=== PATIENT | male | born 1990 | race Caucasian/White ===

== ENCOUNTER 2019-09-23 10:02 | Emergency (ER) | payer OTHER ==
[~2019-09-23] VITALS: Ht 170 cm; Wt 68.2 kg
--- NOTE | 2019-09-23 11:08 | Diagnostic Imaging Report ---
INDICATION: Pain and swelling to the great toe. TIME OF EXAM: 10:21 AM FINDINGS: Three views right foot were obtained. There is a comminuted fracture of the proximal phalanx of the great toe. Fracture line appears to extend to the articular surface of the interphalangeal joint. No displacement or angulation is seen. Remaining phalanges as well as metatarsals are intact. Midfoot and hindfoot are unremarkable. IMPRESSION: Comminuted proximal phalangeal fracture of the great toe with intra-articular extension to the interphalangeal joint. Dictated by: Dictated on workstation # [id number]
--- NOTE | 2019-09-23 11:09 | Diagnostic Imaging Report ---
INDICATION: Injury to the right great toe. Time of exam 10:22 AM 3 views of the right great toe were obtained. There is comminuted fracture of the proximal phalanx of the great toe. Fracture lines do extend to the articular surface of the interphalangeal joint. There is no displacement or angulation. No radiopaque soft tissue foreign bodies are seen. No other fractures are identified. IMPRESSION: Comminuted proximal phalangeal fracture, as described. Dictated by: Dictated on workstation # [id number]
--- NOTE | 2019-09-23 11:10 | NUR ---
Wali tape applied to R great and second toe.
[2019-09-23] MEDS ORDERED: IBUP-1780 PO (11:19)
--- NOTE | 2019-09-23 11:20 | ED Lower Extremity ---
General Chief Complaint: Lower Extremity Stated Complaint: RT TOE INJ Nursing Triage Note: Hurt R foot two days ago and is having R great toe pain Nursing Sepsis Screen: No Definite Risk History of Present Illness Date Seen by Provider: Sep 23, 2019 Time Seen by Provider: 10:14 Initial Comments The patient is a 29-year-old male who is otherwise healthy. He presents with concern for right great toe pain with onset 2 days ago after he jumped off the top bunk of his bed at the residential and "landed wrong" on his toe. No other injury during the episode. Has been taking ibuprofen and Tylenol since the injury without relief of symptoms. Allergies and Home Medications Allergies Coded Allergies: No Known Drug Allergies (Unverified , 09/23/19) Patient Home Medication List Home Medication List Reviewed: Yes Review of Systems Constitutional: see HPI All Other Systems Reviewed Negative Unless Noted: Yes (Negative excepted noted.) Past Qxyldlj-Qfsrgv-Qfoozb Hx Past Med/Social Hx: Reviewed Nursing Past Med/Soc Hx Patient Social History Alcohol Use: Denies Use Recreational Drug Use: No Smoking Status: Former Smoker Former Smoker, Quit: March 07, 2019 2nd Hand Smoke Exposure: No Recent Foreign Travel: No Contact w/Someone Who Travel: No Recent Infectious Disease Expo: No Recent Hopitalizations: No Physical Abuse: No Sexual Abuse: No Mistreated: No Fear: No Seasonal Allergies Seasonal Allergies: No Past Medical History Surgeries: No Respiratory: No Cardiac: No Neurological: No Genitourinary: No Gastrointestinal: No Musculoskeletal: No Endocrine: No HEENT: No Cancer: No Psychosocial: No Integumentary: No Blood Disorders: No Adverse Reaction/Blood Tranf: No Family Medical History Reviewed Nursing Family Hx Physical Exam Vital Signs Vital Signs - First Documented 09/23/19 10:10 Pulse 101 Resp 18 B/P (MAP) 133/85 (101) Pulse Ox 99 Capillary Refill : Less Than 3 Seconds Height, Weight, BMI Height: '" Weight: lbs. oz. kg; 23.00 BMI Method: General Appearance: no apparent distress This is a younger male appearing nontoxic and in no acute distress. Head is normocephalic and atraumatic. Neck is supple and nontender. Oropharynx is moist. Lungs are clear to auscultation in all stations. There is normal S1 and S2 without rubs or gallops and capillary refill is appropriate, less than 2 seconds globally. Abdomen is soft, nontender and nondistended. Skin is warm and dry without cyanosis, clubbing or edema. Psychiatrically, the patient didn't straights appropriate mood and affect and is alert. From a musculoskeletal standpoint, evaluation of the right lower extremity is remarkable for tenderness and swelling and mild ecchymosis to the proximal aspect of the right great toe with some mild limitation and ranging at the MTP and IP joints of that toe secondary to discomfort. No pain with ranging of any other joints of the right lower extremity. No tenderness elsewhere on the foot. The right lower extremity including the right great toe is neurovascularly intact. Progress/Results/Core Measures Results/Orders My Orders Orders - MICHAEL HENDRICKSON MD Toe(S) (09/23/19 10:33) Foot 3 View Right (09/23/19 10:33) Vital Signs/I&O 09/23/19 10:10 Pulse 101 Resp 18 B/P (MAP) 133/85 (101) Pulse Ox 99 Blood Pressure Mean: 101 POS Progress Progress Note : Time: 11:17 Progress Note Plain films reveal a comminuted intra-articular fracture of the proximal phalanx of the right great toe. Will radha tape toe and divided hard soled shoe for heel touch weightbearing. We are unable to provide crutches because the patient is in residential and cannot have them. We'll prescribe ibuprofen for discomfort. The patient is to follow-up with the orthopedic physician in the clinic at [facility] after the weekend and residential staff are to call on Tuesday for an appointment. Patient is to return here right away with worsening symptoms or other new concerns. All questions are answered. Departure Impression Primary Impression: Fracture of proximal phalanx of great toe Qualified Codes: S92.414A - Nondisplaced fracture of proximal phalanx of right great toe, initial encounter for closed fracture Disposition: 01 HOME, SELF-CARE Condition: Improved Departure-Patient Inst. Referrals: ALEXSANDRA MALDONADO MD Patient Instructions: Toe Fracture (DC) Add. Discharge Instructions: Please follow up with Dr. Maldonado of [facility] or with one of his partners in the clinic this coming week. Call for a follow-up appointment on Tuesday. Use the ibuprofen as prescribed every 8 hours as needed for discomfort. Return to the emergency room right away with worsening symptoms or other new concerns. Scripts Ibuprofen (Ibuprofen) 800 Mg Tablet 800 MG PO Q8H PRN for PAIN, #30 TAB 0 Refills Prov: MICHAEL HENDRICKSON MD 09/23/19 MICHAEL HENDRICKSON MD Sep 23, 2019 11:20 POS
[2019-09-23] MEDS ORDERED: IBUPROFEN 800 MG (MOTRIN) TAB PO ONE (11:30)
[2019-09-23 11:34] VITALS: BP 127/70
== END 2019-09-23 11:33 | disposition home or self-care (01) ==
LOC: ER FS 10:04
DX: S92.414A Nondisplaced fracture of proximal phalanx of right great toe, initial encounter for closed fracture (principal); Z87.891 Personal history of nicotine dependence; W17.89XA Other fall from one level to another, initial encounter; Y92.149 Unspecified place in prison as the place of occurrence of the external cause
CPT/HCPCS: 73630; 73660

== ENCOUNTER 2020-01-06 20:20 | Emergency (ER) | payer SELFPAY ==
[~2020-01-06] VITALS: Ht 173 cm; Wt 75.9 kg
[~2020-01-06 20:20] MED LIST: IBUP-1780 PO
--- NOTE | 2020-01-06 20:55 | ED Lower Extremity ---
General Chief Complaint: Lower Extremity Stated Complaint: RIGHT FOOT PAIN Nursing Triage Note: PT STATES HE BROKE HIS RIGHT GREAT TOE IN SEPTEMBER AND RECENTLY STARTED A NEW JOB AT [employer] AND HAS HAD INCREASED PAIN. Nursing Sepsis Screen: No Definite Risk Source: patient Exam Limitations: no limitations History of Present Illness Date Seen by Provider: Jan 06, 2020 Time Seen by Provider: 20:53 Initial Comments Patient had a injury to his right great toe and September sustaining a fracture seen by orthopedic surgeon placed in a boot never had any follow-up he is to have persistent pain toe no other complaints Pain/Injury Location: right heel Method of Injury: other (fracture) Allergies and Home Medications Allergies Coded Allergies: No Known Drug Allergies (Unverified , 09/23/19) Home Medications Diclofenac Sodium 100 Gm Gel..gram., 1 INCH TP TID Prescribed by: DIANNA LAMAR on 01/06/202058 Ibuprofen 800 Mg Tablet, 800 MG PO Q8H PRN for PAIN Prescribed by: MICHAEL HENDRICKSON on 09/23/19 1119 Patient Home Medication List Home Medication List Reviewed: Yes Review of Systems Constitutional: no symptoms reported EENTM: no symptoms reported Respiratory: no symptoms reported Cardiovascular: no symptoms reported Genitourinary: no symptoms reported Musculoskeletal: see HPI Past Bpuftyz-Wabmpl-Blknex Hx Past Med/Social Hx: Reviewed Nursing Past Med/Soc Hx Patient Social History Alcohol Use: Denies Use Recreational Drug Use: No Smoking Status: Current Everyday Smoker Type Used: Cigarettes Former Smoker, Quit: March 07, 2019 2nd Hand Smoke Exposure: No Recent Foreign Travel: No Contact w/Someone Who Travel: No Recent Infectious Disease Expo: No Recent Hopitalizations: No Physical Abuse: No Sexual Abuse: No Mistreated: No Seasonal Allergies Seasonal Allergies: No Past Medical History Surgeries: No Respiratory: No Cardiac: No Neurological: No Genitourinary: No Gastrointestinal: No Musculoskeletal: No Endocrine: No HEENT: No Cancer: No Psychosocial: No Integumentary: No Blood Disorders: No Adverse Reaction/Blood Tranf: No Physical Exam Vital Signs Vital Signs - First Documented 01/06/20 20:25 Temp 36.8 Pulse 93 Resp 14 B/P (MAP) 135/56 (82) Pulse Ox 98 O2 Delivery Room Air Capillary Refill : Less Than 3 Seconds Height, Weight, BMI Height: '" Weight: lbs. oz. kg; 25.00 BMI Method: General Appearance: WD/WN, no apparent distress Neck: full range of motion, normal inspection Cardiovascular: regular rate, rhythm Feet: right foot normal inspection, right foot no evidence of injury, right foot bone tenderness, right foot pain Neurologic/Tendon: normal sensation, normal motor functions, normal tendon functions Neurologic/Psychiatric: beamer hand II-XII nml as tested, alert, normal mood/affect Progress/Results/Core Measures Results/Orders My Orders Orders - DIANNA LAMAR DO Toe(S) (01/06/20 20:55) Vital Signs/I&O 01/06/20 20:25 Temp 36.8 Pulse 93 Resp 14 B/P (MAP) 135/56 (82) Pulse Ox 98 O2 Delivery Room Air Blood Pressure Mean: 82 Progress Progress Note : Progress Note Shows an old toe fracture that did not get follow-up with persistent pain diffe rential would include nonunion intra-articular fracture malingering plan repeat x-ray since the patient does not have a follow-up study with the orthopedist's normal discharge for symptomatic treatment podiatry follow-up Departure Impression Primary Impression: Toe pain, right Disposition: 01 HOME, SELF-CARE Condition: Stable Departure-Patient Inst. Referrals: RAHEEM DE LA CRUZ DPDenise this next week. NO,LOCAL PHYSICIAN (PCP) Primary Care Physician Scripts Diclofenac Sodium (Voltaren) 100 Gm Gel..gram. 1 INCH TP TID for Pain for 7 Days, #1 TUBE Prov: DIANNA LAMAR DO 01/06/20 Work/School Note: Work Release Form Date Seen in the Emergency Department: Jan 06, 2020 Return to Work: Jan 06, 2020 Restrictions: Need Release from Doctor Other Restrictions Listed Below: limited walking until seen by podiatrists to DIANNA Giang DO Jan 06, 2020 20:55
[2020-01-06] MEDS ORDERED: DICL100G18 TP (20:58)
--- NOTE | 2020-01-06 21:18 | Diagnostic Imaging Report ---
INDICATION: Right great toe pain. History of fracture. COMPARISON: 09/23/2019 TECHNIQUE: 3 views of right great toe were obtained. FINDINGS: There is no new fracture. The mildly comminuted fracture of the great toe proximal phalanx has near completely healed with interosseous bridging, although some of the fracture lines remain visible. No articular surface incongruency at the MTP or IP joints. No radiopaque foreign body. IMPRESSION: 1. The great toe proximal phalanx fracture has near completely healed and is anatomic in alignment. 2. No new fracture. Dictated by: Dictated on workstation # [id number]
[2020-01-06 21:33] VITALS: BP 130/62
== END 2020-01-06 21:33 | disposition home or self-care (01) ==
LOC: EDUNIT# 20:20 → ER FS 20:24
DX: M79.674 Pain in right toe(s) (principal); F17.210 Nicotine dependence, cigarettes, uncomplicated; Z87.81 Personal history of (healed) traumatic fracture
CPT/HCPCS: 73660